=== PATIENT | female | born 1955 | race Caucasian/White ===

== ENCOUNTER 2018-07-15 23:31 | Emergency (ER) | payer OTHER ==
[2018-07-16] MEDS ORDERED: LIDOCAINE 1%/EPINEPHRINE INJ 20 ML VIAL INJ ONE (00:04)
[2018-07-16] MEDS ORDERED: DIPH/PERTUSS(ACELL)/TETANUS VAC/PF 0.5 ML SYR (>=10YO) IM ONE (00:05)
--- NOTE | 2018-07-16 00:11 | ER Document Report ---
ED General - General Chief Complaint: Fall Injury Stated Complaint: FALL, HEAD LACERATION Time Seen by Provider: 07/15/18 23:52 TRAVEL OUTSIDE OF THE [place] IN LAST 30 DAYS: No - HPI Patient complains to provider of: fall and cut on head Onset: Just prior to arrival Notes: Very pleasant 62-year-old female history of hypertension and RLS presents to the emergency department after a trip and fall. 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 She denies loss of consciousness. She denies being on blood thinners or aspirin. Is unsure what caused the fall. She denied any palpitations, dizziness, syncopal episode, she denies headache, vision changes. He does endorse a very mild dull ache in the back of her head. Drove herself here. - Related Data Allergies/Adverse Reactions: No Known Allergies Allergy (Verified 12/20/15 15:27) Past Medical History - General Information source: Patient - Social History Smoking Status: Never Smoker Frequency of alcohol use: None Family History: Reviewed & Not Pertinent Patient has suicidal ideation: No Patient has homicidal ideation: No - Past Medical History Cardiac Medical History: Reports: Hx Hypertension Pulmonary Medical History: Denies: Hx Tuberculosis Renal/ Medical History: Denies: Hx Peritoneal Dialysis Musculoskeletal Medical History: Denies Hx Gout Skin Medical History: Reports Hx Cellulitis - See history of present illness Past Surgical History: Reports: Hx Tonsillectomy - Immunizations Hx Diphtheria, Pertussis, Tetanus Vaccination: No Review of Systems - Review of Systems Constitutional: See HPI EENT: See HPI Cardiovascular: See HPI Respiratory: See HPI Gastrointestinal: See HPI Genitourinary: See HPI Female Genitourinary: No symptoms reported Musculoskeletal: No symptoms reported Skin: No symptoms reported Hematologic/Lymphatic: No symptoms reported Neurological/Psychological: No symptoms reported Physical Exam - Vital signs Vitals: Temp Pulse Resp BP Pulse Ox 97.5 F 83 15 160/84 H 97 07/15/18 23:36 07/15/18 23:36 07/15/18 23:36 07/15/18 23:36 07/15/18 23:36 Interpretation: Normal - Notes Notes: Reviewed vital signs and nursing note as charted by RN. CONSTITUTIONAL: Well-appearing, well-nourished; acting appropriately for age HEAD: Normocephalic; atraumatic; No swelling EYES: PERRL; Conjunctivae clear, no drainage; EOMI ENT: External ears without lesions; External auditory canal is patent; TMs without erythema, landmarks clear and well visualized; no rhinorrhea; Pharynx without erythema or lesions, no tonsillar hypertrophy, airway patent, mucous membranes pink and moist, trace thrush NECK: Supple, no cervical lymphadenopathy, no masses CARD: Regular rate and rhythm; no murmurs, no rubs, no gallops, capillary refill < 2 seconds, symmetric pulses RESP: Respiratory rate and effort are normal. There is normal chest excursion. No respiratory distress, no retractions, no stridor, no nasal flaring, no accessory muscle use. The lungs are clear to auscultation bilaterally, no wheezing, no rales, no rhonchi. ABD/GI: Normal bowel sounds; non-distended; soft, non-tender, no rebound, no guarding, no palpable organomegaly EXT: Normal ROM in all joints; non-tender to palpation; no effusions, no edema SKIN: Normal color for age and race; warm; dry; good turgor; 3 cm vertical laceration above the right eyebrow. NEURO: No facial asymmetry; Moves all extremities equally; Motor and sensory function intact - General General appearance: Appears well, Alert - HEENT Head: Normocephalic, Atraumatic Eyes: Normal Pupils: PERRL - Respiratory Respiratory status: No respiratory distress Chest status: Nontender Breath sounds: Normal Chest palpation: Normal - Cardiovascular Rhythm: Regular Heart sounds: Normal auscultation Murmur: No - Abdominal Inspection: Normal Distension: No distension Bowel sounds: Normal Tenderness: Nontender Organomegaly: No organomegaly - Back Back: Normal, Nontender - Extremities General upper extremity: Normal inspection, Nontender, Normal color, Normal ROM , Normal temperature General lower extremity: Normal inspection, Nontender, Normal color, Normal ROM , Normal temperature, Normal weight bearing. No: Tyson's sign - Neurological Neuro grossly intact: Yes Cognition: Normal Orientation: AAOx4 [place] Coma Scale Eye Opening: Spontaneous [place] Coma Scale Verbal: Oriented [place] Coma Scale Motor: Obeys Commands [place] Coma Scale Total: 15 Speech: Normal Motor strength normal: LUE, RUE, LLE, RLE Sensory: Normal - Psychological Associated symptoms: Normal affect, Normal mood - Skin Skin Temperature: Warm Skin Moisture: Dry Skin Color: Normal Course - Re-evaluation Re-evalutation: 07/16/18 01:04 DANIEL Cornell, performed procedure. 1 horizontal mattress suture, 4-0 Ethilon. No complications, tolerated procedure well. Patient received tetanus immunization is last one was in 1998. - Vital Signs Vital signs: Temp Pulse Resp BP Pulse Ox 97.5 F 83 15 160/84 H 97 07/15/18 23:36 07/15/18 23:36 07/15/18 23:36 07/15/18 23:36 07/15/18 23:36 Procedures - Laceration/Wound Repair Head Wound length (cm): 3 Wound's Depth, Shape: Linear Laceration pre-procedure: Sterile PPE donned, Sterile drapes applied, Shur- Clens applied Anesthetic type: 1% Lidocaine w/epi Volume Anesthetic (mLs): 6 Wound explored: Clean Irrigated w/ Saline (mLs): 300 Wound Debrided: Minimal Wound Repaired With: Sutures Suture Size/Type: 4:0, Ethilon Number of Sutures: 1 - horizontal mattress Layer Closure?: No Post-procedure wound care: Sterile dressing applied Complications: No Discharge - Discharge Clinical Impression: Laceration Condition: Good Disposition: HOME, SELF-CARE Instructions: Antibiotic Ointment Protection (OM), Laceration Care (OM), Tetanus Immunization Given ([facility] [place]) Additional Instructions: He was seen in the emergency department this evening for a laceration on her head. Keep it clean and dry for the next 24 hours. If you develop fever, chills, if the site becomes red and inflamed that is sign of infection. If so, follow-up with your primary care provider return to the emergency department.
[2018-07-16 01:18] VITALS: BP 155/86
== END 2018-07-16 01:19 | disposition home or self-care (01) ==
LOC: ER 23:31
DX: S01.81XA Laceration without foreign body of other part of head, initial encounter (principal); W19.XXXA Unspecified fall, initial encounter; Y93.89 Activity, other specified; Y99.0 Civilian activity done for income or pay; I10 Essential (primary) hypertension; Z23 Encounter for immunization
CPT/HCPCS: 99283; 90471; 90715; 12013; J3490

== ENCOUNTER 2018-07-21 23:41 | Emergency (ER) | payer OTHER ==
[2018-07-21 23:57] VITALS: BP 151/70
--- NOTE | 2018-07-22 00:28 | ER Document Report ---
HPI - HPI Patient complains to provider of: Suture removal Time Seen by Provider: 07/22/18 00:10 Onset: Last week Pain Level: 0 Context: 62-year-old female presents to the emergency department for suture removal. She sustained a an injury to her right supraorbital area on her forehead a week ago and was seen in this emergency department where a single horizontal mattress suture was placed. She reports there were no complications. She denies any purulent discharge, redness, warmth in the area. She denies fevers, chills, nausea, vomiting. - CONSTITUTIONAL Constitutional: DENIES: Fever, Chills - EENT EENT: DENIES: Sore Throat, Ear Pain, Eye problems - NEURO Neurology: DENIES: Headache, Weakness, Vision blurred, Dizzinesss / Vertigo - CARDIOVASCULAR Cardiovascular: DENIES: Chest pain - RESPIRATORY Respiratory: DENIES: Trouble Breathing, Coughing - GASTROINTESTINAL Gastrointestinal: DENIES: Abdominal Pain, Black / Bloody Stools - URINARY Urinary: DENIES: Dysuria, Urgency, Frequency - REPRODUCTIVE Reproductive: DENIES: : - MUSCULOSKELETAL Musculoskeletal: DENIES: Extremity pain Past Medical History - General Information source: Patient - Social History Smoking Status: Unknown if Ever Smoked Family History: Reviewed & Not Pertinent Patient has suicidal ideation: No Patient has homicidal ideation: No - Past Medical History Cardiac Medical History: Reports: Hx Hypertension Pulmonary Medical History: Denies: Hx Tuberculosis Renal/ Medical History: Denies: Hx Peritoneal Dialysis Musculoskeletal Medical History: Denies Hx Gout Skin Medical History: Reports Hx Cellulitis - See history of present illness Past Surgical History: Reports: Hx Tonsillectomy - Immunizations Hx Diphtheria, Pertussis, Tetanus Vaccination: No Vertical Provider Document - CONSTITUTIONAL Agree With Documented VS: Yes Exam Limitations: No Limitations - INFECTION CONTROL TRAVEL OUTSIDE OF THE [place] IN LAST 30 DAYS: No - HEENT HEENT: Atraumatic - 3 cm longitudinal laceration directly above the right eyebrow over the frontal area with a horizontal mattress suture in place., Normocephalic Course - Re-evaluation Re-evalutation: 07/22/18 00:40 Patient presents for suture removal after having suture cement last week. On inspection linear laceration vertical over right eyebrow clean dry intact. No evidence of redness, warmth, purulent discharge. Suture removal kit retrieved from the Pyxis and suture removed without any difficulty. Patient tolerated procedure well - Vital Signs Vital signs: Temp Pulse Resp BP Pulse Ox 97.8 F 71 16 151/70 H 100 07/21/18 23:56 07/21/18 23:56 07/21/18 23:56 07/21/18 23:56 07/21/18 23:56 Discharge - Discharge Clinical Impression: Visit for suture removal, Laceration Condition: Good Disposition: HOME, SELF-CARE Additional Instructions: You are seen in the emergency department today for suture removal. It is okay to use soap and water over the area. If the wound comes apart please return to the emergency department for new sutures. If the area gets red warm looks inflamed or you noticed discharge coming from it please go to the urgent care come back to the emergency department.
== END 2018-07-22 00:35 | disposition home or self-care (01) ==
LOC: ER 23:41
DX: S01.111D Laceration without foreign body of right eyelid and periocular area, subsequent encounter (principal); X58.XXXD Exposure to other specified factors, subsequent encounter; I10 Essential (primary) hypertension